=== PATIENT | female | born 1980 | race Caucasian/White ===

== ENCOUNTER 2017-07-18 16:28 | Emergency (ER) | payer SELFPAY | END 2017-07-18 16:50 | disposition home or self-care (01) | LOC: BURERS 16:28 | DX: J06.9 Acute upper respiratory infection, unspecified (principal); F32.9 Major depressive disorder, single episode, unspecified | CPT/HCPCS: 99283 ==

== ENCOUNTER 2020-03-26 22:15 | Emergency (ER) | payer OTHER ==
[2020-03-26 23:15] LABS: #Basophils 0.1 thou/uL (0.0-0.2); #Eosinphils 0.2 thou/uL (0.0-0.7); #Lymphocytes 3.1 thou/uL (1.20-3.40); #Monocytes 0.7 thou/uL (0.11-0.59); #Neutrophils 6.2 thou/uL (1.40-6.50); %Basophils 1.3 % (0.0-1.0); %Eosinophils 2.2 % (0.0-10.0); %Lymphocytes 29.7 % (21.0-51.0); %Monocytes 6.3 % (0.0-10.0); %Neutrophils 60.5 % (42.0-75.0); Hemoglobin 14.9 g/dL (12.0-16.0); Mean Corpuscular Hemoglobin 28.9 pg (27.0-31.0); Mean Corpuscular Volume 90.5 fL (78.0-98.0); Mean Platelet Volume 6.4 fL (7.4-10.4); Platelet Count 283 thou/uL (130-400); RBC Distribution Width 12.7 % (11.5-14.5); Red Blood Cell (RBC) Count 5.14 mill/uL (4.20-5.40); White Blood Cell (WBC) Count 10.3 thou/uL (4.8-10.8)
[2020-03-26 23:19] LABS: INR-International Normal Ratio 1.2; PTT 28.9 sec (22.9-36.1); Prothrombin Time 15.2 sec (12.0-14.7)
[2020-03-26 23:29] LABS: ALT (SGPT) 16 U/L (8-55); AST (SGOT) 9 U/L (5-34); Albumin 4.1 g/dL (3.5-5.0); Alkaline Phosphatase 70 U/L (40-110); Anion Gap 14 mmol/L (10-20); BUN (Urea Nitrogen) Less than 4 mg/dL (7.0-18.7); Bilirubin, Total 0.7 mg/dL (0.2-1.2); Calc. Creatinine Clearance 0 mL/min (70-130); Calcium 8.9 mg/dL (7.8-10.44); Carbon Dioxide 19 mmol/L (22-29); Chloride 113 mmol/L (98-107); Estimated GFR-MDRD 76; Globulin 3.1 g/dL (2.4-3.5); Glucose 87 mg/dL (70-105); Potassium 4.2 mmol/L (3.5-5.1); Protein, Total 7.2 g/dL (6.0-8.3); Sodium 142 mmol/L (136-145)
[2020-03-27 00:05] LABS: Acetaminophen Less than 6.0 mcg/mL (10.0-30.0); Alcohol Less than 10 mg/dL (Less than 10); Salicylate Less than 8.0 mg/dL (15.0-30.0)
--- NOTE | 2020-03-27 10:41 | CT ---
PRELIMINARY REPORT/[facility]/AFTER HOURS PROCEDURE Receipt of this report by the clinical staff was confirmed with LENNY MYERS RN by Layne Veloz on Mar 26, 2020 23:16:00 CDT. Addendum electronically signed by Layne Veloz on March 26, 2020 11:17:[address] HEAD WITHOUT INTRAVENOUS CONTRAST: CLINICAL HISTORY: Seizures. TECHNIQUE: Axial computed tomography images of the head/brain without intravenous contrast. COMPARISON: None provided. FINDINGS: Significant patient motion artifact severely degrades evaluation of intracranial contents. Postsurgi macy changes related to her right craniectomy/frontal lobectomy. No apparent hyperdensity to suggest h emorrhage. No acute skull fracture. IMPRESSION: 1. Severely limited exam secondary to image degradation related to patient motion. No gross abnormal ity. 2. Postsurgical changes related to right craniectomy/right frontal lobectomy. Recommend repeat CT once patient is able. ELECTRONICALLY SIGNED BY: Akin Archibald DO Mar 26, 2020 11:11:40 PM CDT This report is intended for review by the ordering physician only, in accordance of law. If you recei ve this report in error, please call [facility] at [phone]. FINAL REPORT CT BRAIN WITHOUT CONTRAST: 03/26/2020 COMPARISON: 10/17/2018 FINDINGS: There is an excessive amount of patient motion on these images, which significantly degrades the stud y. There is a very extensive right frontotemporal parietal craniectomy. Extensive encephalomalacia is pr esent in the remaining brain parenchyma on the right. No gross mass or hemorrhage is appreciated with in the limitations of this study. There does not appear to be ventriculomegaly. A ventriculostomy tub e is in appropriate position. No skull fractures are seen. IMPRESSION: 1. Very low sensitive study due to patient motion. No gross acute findings but if symptoms continue, a repeat CT when the patient is able to hold still better might be helpful. 2. Extensive right-sided craniectomy with underlying encephalomalacia. Report in agreement with the preliminary reading by [facility]. CODE QA POS: HOME
== END 2020-03-27 00:30 | disposition short-term general hospital (02) ==
LOC: BURERS 22:15
DX: I63.9 Cerebral infarction, unspecified (principal); F41.9 Anxiety disorder, unspecified; Z79.899 Other long term (current) drug therapy
CPT/HCPCS: 36415; 36416; 70450; 80053; 80307; 82140; 83605; 84484; 85025; 85610; 85730; 93005; 94760

== ENCOUNTER 2020-05-24 12:20 | Outpatient (CLI) | payer MEDICARE, MEDICAID ==
[2020-05-24 12:39] LABS: #Basophils 0.1 thou/uL (0.0-0.2); #Eosinphils 0.1 thou/uL (0.0-0.7); #Lymphocytes 2.2 thou/uL (1.20-3.40); #Monocytes 0.5 thou/uL (0.11-0.59); #Neutrophils 5.9 thou/uL (1.40-6.50); %Basophils 0.7 % (0.0-1.0); %Eosinophils 1.2 % (0.0-10.0); %Lymphocytes 25.4 % (21.0-51.0); %Monocytes 5.3 % (0.0-10.0); %Neutrophils 67.4 % (42.0-75.0); Hemoglobin 14.4 g/dL (12.0-16.0); Mean Corpuscular HGB CONC 30.8 g/dL (32.0-36.0); Mean Corpuscular Hemoglobin 27.8 pg (27.0-31.0); Mean Corpuscular Volume 90.5 fL (78.0-98.0); Mean Platelet Volume 6.7 fL (7.4-10.4); Platelet Count 264 thou/uL (130-400); RBC Distribution Width 12.5 % (11.5-14.5); Red Blood Cell (RBC) Count 5.17 mill/uL (4.20-5.40); White Blood Cell (WBC) Count 8.8 thou/uL (4.8-10.8)
[2020-05-24 12:52] LABS: ALT (SGPT) 21 U/L (8-55); AST (SGOT) 13 U/L (5-34); Alkaline Phosphatase 83 U/L (40-110); Anion Gap 13 mmol/L (10-20); BUN (Urea Nitrogen) 7 mg/dL (7.0-18.7); Bilirubin, Total 0.7 mg/dL (0.2-1.2); Calc. Creatinine Clearance 0 mL/min (70-130); Calcium 8.6 mg/dL (7.8-10.44); Carbon Dioxide 27 mmol/L (22-29); Chloride 106 mmol/L (98-107); Estimated GFR-MDRD 81; Glucose 94 mg/dL (70-105); Potassium 4.1 mmol/L (3.5-5.1); Sodium 142 mmol/L (136-145)
--- NOTE | 2020-05-25 07:06 | RAD ---
EXAM: Two views chest PROVIDED CLINICAL HISTORY: Preoperative evaluation COMPARISON: None FINDINGS: Cardiac silhouette and pulmonary vasculature are within normal limits. The lungs are clear. The osse ous structures have a normal appearance. Ventriculoperitoneal shunt catheter overlies the left chest. IMPRESSION: No acute cardiopulmonary process.
== END 2020-05-24 12:21 | disposition home or self-care (01) ==
LOC: BURRAD 12:20
PROVIDERS: ATTEND Family Medicine
DX: Z01.818 Encounter for other preprocedural examination (principal)
CPT/HCPCS: 36415; 71046; 80053; 85025